=== PATIENT | male | born 1985 | race Caucasian/White ===

== ENCOUNTER 2018-11-02 14:53 | Emergency (ER) | payer BC ==
[2018-11-02] MEDS: DIPHTH/TET/ACEL PERTUSS (ADULT) 0.5 ML VIAL IM* (15:40)
[2018-11-02] MEDS: LIDOCAINE 1% (MDV) 20 ML INJ SC (15:41)
== END 2018-11-02 16:40 | disposition home or self-care (01) ==
LOC: FTE 14:53
DX: S61.412A Laceration without foreign body of left hand, initial encounter (principal); W21.09XA Struck by other hit or thrown ball, initial encounter; Y92.328 Other athletic field as the place of occurrence of the external cause; Z23 Encounter for immunization
CPT/HCPCS: 12002; 90471; 90715; 99283-25